=== PATIENT | male | born 1945 | race Native Hawaiian/Other Pacific Islander ===

== ENCOUNTER 2018-12-14 13:51 | Emergency (ER) | payer MEDICARE, BC ==
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
[2018-12-14 14:32] LABS: Basophils # (A) 0.1 k/uL (0-0.2); Basophils % (A) 1 %; Eosinophils # (A) 0.2 k/uL (0-0.7); Eosinophils % (A) 4 %; HCT 46.3 % (39.0-53.0); HGB 15.8 gm/dL (13.0-17.5); Lymphocytes # (A) 1.7 k/uL (1.0-4.8); Lymphocytes % (A) 27 %; MCH 32.2 pg (25.0-35.0); MCHC 34.1 g/dL (31.0-37.0); MCV 94.4 fL (80.0-100.0); Mean Platelet Volume 6.3; Monocytes # (A) 0.3 k/uL (0-1.0); Monocytes % (A) 5 %; Neutrophils % (A) 62 %; Platelet Count 266 k/uL (150-450); RBC 4.91 m/uL (4.30-5.90); WBC 6.4 k/uL (3.8-10.6)
[2018-12-14 14:37] LABS: ALT 48 U/L (21-72); AST 28 U/L (17-59); Albumin 4.7 g/dL (3.5-5.0); Alkaline Phosphatase 87 U/L (38-126); Anion Gap 12 mmol/L; Blood Urea Nitrogen 17 mg/dL (9-20); Calcium 9.9 mg/dL (8.4-10.2); Carbon Dioxide 23 mmol/L (22-30); Chloride 105 mmol/L (98-107); Glucose 145 mg/dL (74-99); Magnesium 1.9 mg/dL (1.6-2.3); Sodium 140 mmol/L (137-145); Total Bilirubin 0.6 mg/dL (0.2-1.3); Total Protein 7.7 g/dL (6.3-8.2)
[2018-12-14 14:41] LABS: INR 0.9 (<1.2); Partial Thromboplastin Time 27.1 sec (22.0-30.0); Prothrombin Time 10.1 sec (9.0-12.0)
--- NOTE | 2018-12-14 14:51 | XR ---
EXAMINATION TYPE: XR chest 2V DATE OF EXAM: 12/14/2018 COMPARISON: NONE HISTORY: Difficulty breathing and chest pain TECHNIQUE: Frontal and lateral views of the chest are obtained. FINDINGS: There is no focal air space opacity, pleural effusion, or pneumothorax seen. The cardiac silhouette size is within normal limits. Prominent lung volume may be indicative of underlying COPD. There are overlying cardiac leads. There is flattening the hemidiaphragms. Flowing anterior osteophy chan within the thoracic spine may be indicative of underlying diffuse idiopathic skeletal hyperostosi s. The osseous structures are intact. IMPRESSION: No acute cardiopulmonary process.
--- NOTE | 2018-12-14 16:00 | CT ---
EXAMINATION TYPE: CT brain wo con DATE OF EXAM: 12/14/2018 HISTORY: Episode of dizziness. Headache. CT DLP: 1150.4 mGycm. Automated Exposure Control for Dose Reduction was Utilized. TECHNIQUE: CT scan of the head is performed without contrast. COMPARISON: CT brain June 19, 2011 FINDINGS: There is no acute intracranial hemorrhage or midlin e shift identified. There is diffuse ventricular and sulcal prominence consistent with diffuse age-re lated cerebral atrophy. There is low-attenuation in the periventricular white matter consistent with chronic small vessel ischemic change. There is patchy fluid in the dependent right maxillary sinus w ith air-fluid level in the left maxillary sinus. There is patchy fluid in the ethmoid sinuses bilater ally. There is mild mucosal thickening in the anterior sphenoid and inferior bilateral frontal sinuse s. IMPRESSION: No acute intracranial hemorrhage or midline shift. There is mild to moderate diffuse ag e-related cerebral atrophy and chronic small vessel ischemic change identified with progression from 2011 study especially in the latter. Acute on chronic paranasal sinus disease is appreciated.
[2018-12-14 16:40] VITALS: BP 146/83; PULSE 65; RESP 18; TEMP 98.5
== END 2018-12-14 16:48 | disposition home or self-care (01) ==
LOC: EC 13:51
DX: R07.9 Chest pain, unspecified (principal); R51 Headache; R06.02 Shortness of breath; R06.00 Dyspnea, unspecified; E11.9 Type 2 diabetes mellitus without complications; I10 Essential (primary) hypertension; Z79.84 Long term (current) use of oral hypoglycemic drugs; Z79.899 Other long term (current) drug therapy; Z88.0 Allergy status to penicillin; Z87.891 Personal history of nicotine dependence
CPT/HCPCS: 36415; 70450; 71046; 80053; 83735; 83880; 84484; 85025; 85610; 85730; 93005; 99285

== ENCOUNTER 2019-01-12 20:53 | Inpatient (IN) | payer MEDICARE, BC ==
[2019-01-12] MEDS ORDERED: PANTOPRAZOLE 40 MG/10 ML VIAL IVP STA (21:24)
--- NOTE | 2019-01-12 21:24 | ED ---
GI Bleed HPI - General Chief complaint: GI Bleed Stated complaint: Rectal bleeding Source: patient Mode of arrival: ambulatory Limitations: no limitations - History of Present Illness Initial comments: Patient states he was in his usual state of health until between 1-2 hours ago when he states he went to have bowel movement and noticed that there was some blood with the bowel movement. He describes seeing both some dark clot-like material as well as a little bit of red blood. Patient states that he had a second bowel movement with the same. He denies any other symptoms, including no abdominal pain or cramping. No perianal pain. He denies any symptoms of anemia, including no chest pain, dyspnea, diaphoresis, palpitations, lightheadedness or syncope. No previous history of GI bleeding. denies use of blood thinning medications. MD complaint: melena, gross hematochezia Onset/Timin -: hour(s) Radiation: none Severity scale (1-10): 0 Quality: painless Improves with: none Worsens with: none Associated Symptoms: denies other symptoms Treatments Prior to Arrival: none - Related Data Home Medications Medication Instructions Recorded Confirmed amLODIPine BESYLATE 10 mg PO DAILY 12/14/18 01/12/19 metFORMIN HCL 1,000 mg PO DAILY 12/14/18 01/12/19 Calcium Carbonate [Calcium] 600 mg PO DAILY 01/12/19 01/12/19 Fluticasone Nasal [place] [Flonase 1 spray EA NOSTRIL DAILY PRN 01/12/19 01/12/19 Nasal [place]] Allergies Allergy/AdvReac Type Severity Reaction Status Date / Time Penicillins Allergy Rash/Hives Verified 01/12/19 21:59 Review of Systems ROS Statement: Those systems with pertinent positive or pertinent negative responses have been documented in the HPI. ROS Other: All systems not noted in ROS Statement are negative. Constitutional: Denies: fever, chills, weakness Respiratory: Denies: cough, dyspnea Cardiovascular: Denies: chest pain, palpitations, edema, syncope Gastrointestinal: Reports: hematochezia. Denies: abdominal pain, nausea, vomiti ng, diarrhea Genitourinary: Denies: dysuria, hematuria Musculoskeletal: Denies: back pain Skin: Denies: rash Neurological: Denies: headache, weakness, numbness Psychiatric: Denies: anxiety Hematological/Lymphatic: Denies: easy bleeding Past Medical History Past Medical History: Diabetes Mellitus, Hyperlipidemia, Hypertension History of Any Multi-Drug Resistant Organisms: None Reported Additional Past Surgical History / Comment(s): ear surgery, Past Psychological History: No Psychological Hx Reported Smoking Status: Former smoker Past Alcohol Use History: Rare Past Drug Use History: None Reported General Exam Limitations: no limitations General appearance: alert Head exam: Present: atraumatic, normocephalic Eye exam: Present: normal appearance. Absent: scleral icterus, conjunctival injection ENT exam: Present: normal oropharynx Neck exam: Present: normal inspection Respiratory exam: Present: normal lung sounds bilaterally. Absent: respiratory distress, wheezes, rales, rhonchi, stridor Cardiovascular Exam: Present: regular rate, normal rhythm, normal heart sounds. Absent: systolic murmur, diastolic murmur, rubs, gallop GI/Abdominal exam: Present: soft. Absent: distended, tenderness, guarding, rebound, rigid, mass Extremities exam: Present: normal inspection, normal capillary refill. Absent: pedal edema, calf tenderness Back exam: Present: normal inspection. Absent: CVA tenderness (R), CVA tenderness (L) Neurological exam: Present: alert Skin exam: Present: warm, dry, intact, normal color. Absent: rash Course Vital Signs 01/12/19 01/12/19 20:56 22:16 Temperature 98.8 F Pulse Rate 90 88 Respiratory 18 15 Rate Blood Pressure 155/77 161/85 O2 Sat by Pulse 97 95 Oximetry Medical Decision Making - Lab Data Result diagrams: 01/12/19 21:10 01/12/19 21:10 Lab Results 01/12/19 01/12/19 01/12/19 Range/Units 21:10 21:10 21:10 WBC 7.8 (3.8-10.6) k/uL RBC 4.88 (4.30-5.90) m/uL Hgb 15.5 (13.0-17.5) gm/dL Hct 44.8 (39.0-53.0) % MCV 91.9 (80.0-100.0) fL MCH 31.8 (25.0-35.0) pg MCHC 34.6 (31.0-37.0) g/dL RDW 14.2 (11.5-15.5) % Plt Count 269 (150-450) k/uL Neutrophils % 55 % Lymphocytes % 32 % Monocytes % 6 % Eosinophils % 5 % Basophils % 1 % Neutrophils # 4.3 (1.3-7.7) k/uL Lymphocytes # 2.5 (1.0-4.8) k/uL Monocytes # 0.4 (0-1.0) k/uL Eosinophils # 0.4 (0-0.7) k/uL Basophils # 0.1 (0-0.2) k/uL PT 9.8 (9.0-12.0) sec INR 0.9 (<1.2) APTT 25.9 (22.0-30.0) sec Sodium 140 (137-145) mmol/L Potassium 4.2 (3.5-5.1) mmol/L Chloride 107 (98-107) mmol/L Carbon Dioxide 22 (22-30) mmol/L Anion Gap 11 mmol/L BUN 17 (9-20) mg/dL Creatinine 0.68 (0.66-1.25) mg/dL Est GFR (CKD-EPI)AfAm >90 (>60 ml/min/1.73 sqM) Est GFR (CKD-EPI)NonAf >90 (>60 ml/min/1.73 sqM) Glucose 203 H (74-99) mg/dL Calcium 9.3 (8.4-10.2) mg/dL Total Bilirubin 0.4 (0.2-1.3) mg/dL AST 20 (17-59) U/L ALT 34 (21-72) U/L Alkaline Phosphatase 125 (38-126) U/L Troponin I (0.000-0.034) ng/mL Total Protein 7.3 (6.3-8.2) g/dL Albumin 4.3 (3.5-5.0) g/dL Blood Type Blood Type Recheck Antibody Screen Spec Expiration Date 01/12/19 01/12/19 Range/Units 21:10 21:10 WBC (3.8-10.6) k/uL RBC (4.30-5.90) m/uL Hgb (13.0-17.5) gm/dL Hct (39.0-53.0) % MCV (80.0-100.0) fL MCH (25.0-35.0) pg MCHC (31.0-37.0) g/dL RDW (11.5-15.5) % Plt Count (150-450) k/uL Neutrophils % % Lymphocytes % % Monocytes % % Eosinophils % % Basophils % % Neutrophils # (1.3-7.7) k/uL Lymphocytes # (1.0-4.8) k/uL Monocytes # (0-1.0) k/uL Eosinophils # (0-0.7) k/uL Basophils # (0-0.2) k/uL PT (9.0-12.0) sec INR (<1.2) APTT (22.0-30.0) sec Sodium (137-145) mmol/L Potassium (3.5-5.1) mmol/L Chloride (98-107) mmol/L Carbon Dioxide (22-30) mmol/L Anion Gap mmol/L BUN (9-20) mg/dL Creatinine (0.66-1.25) mg/dL Est GFR (CKD-EPI)AfAm (>60 ml/min/1.73 sqM) Est GFR (CKD-EPI)NonAf (>60 ml/min/1.73 sqM) Glucose (74-99) mg/dL Calcium (8.4-10.2) mg/dL Total Bilirubin (0.2-1.3) mg/dL AST (17-59) U/L ALT (21-72) U/L Alkaline Phosphatase (38-126) U/L Troponin I <0.012 (0.000-0.034) ng/mL Total Protein (6.3-8.2) g/dL Albumin (3.5-5.0) g/dL Blood Type O Positive Blood Type Recheck CABO Indicated Antibody Screen NEGATIVE Spec Expiration Date 01/15/2019 - 2309 Disposition Clinical Impression: Lower gastrointestinal hemorrhage Disposition: ADMITTED IP TO THIS [facility] Condition: Serious Instructions (If sedation given, give patient instructions): Gastrointestinal Bleeding (ED) Referrals: Jay Parekh MD [Primary Care Provider] - 1-2 days
[2019-01-12 21:51] LABS: Basophils # (A) 0.1 k/uL (0-0.2); Basophils % (A) 1 %; Eosinophils # (A) 0.4 k/uL (0-0.7); Eosinophils % (A) 5 %; HCT 44.8 % (39.0-53.0); HGB 15.5 gm/dL (13.0-17.5); Lymphocytes # (A) 2.5 k/uL (1.0-4.8); Lymphocytes % (A) 32 %; MCH 31.8 pg (25.0-35.0); MCHC 34.6 g/dL (31.0-37.0); MCV 91.9 fL (80.0-100.0); Monocytes # (A) 0.4 k/uL (0-1.0); Monocytes % (A) 6 %; Neutrophils # (A) 4.3 k/uL (1.3-7.7); Neutrophils % (A) 55 %; Platelet Count 269 k/uL (150-450); RBC 4.88 m/uL (4.30-5.90); RDW 14.2 % (11.5-15.5); WBC 7.8 k/uL (3.8-10.6)
[2019-01-12 21:54] LABS: INR 0.9 (<1.2); Partial Thromboplastin Time 25.9 sec (22.0-30.0); Prothrombin Time 9.8 sec (9.0-12.0)
[2019-01-12 21:55] LABS: ALT 34 U/L (21-72); AST 20 U/L (17-59); Albumin 4.3 g/dL (3.5-5.0); Alkaline Phosphatase 125 U/L (38-126); Anion Gap 11 mmol/L; Blood Urea Nitrogen 17 mg/dL (9-20); Calcium 9.3 mg/dL (8.4-10.2); Carbon Dioxide 22 mmol/L (22-30); Chloride 107 mmol/L (98-107); Glucose 203 mg/dL (74-99); Potassium 4.2 mmol/L (3.5-5.1); Sodium 140 mmol/L (137-145); Total Bilirubin 0.4 mg/dL (0.2-1.3); Total Protein 7.3 g/dL (6.3-8.2)
[2019-01-12] MEDS ORDERED: NALOXONE 0.4 MG/ML 1 ML VIAL IV PRN (23:14)
[2019-01-12] MEDS: SODIUM CHLORIDE 0.9% 1,000 ML IV SCH (23:59)
[2019-01-13 01:22] VITALS: BMI 28.4
--- NOTE | 2019-01-13 02:49 | P.HPIM ---
History of Present Illness H&P Date: 01/12/19 Chief Complaint: GI bleeding 73-year-old male with history of diabetes, hypertension, Patient presented the hospital due to sudden onset GI bleeding. He reports at 9 PM he started noticing bloody bowel movement described as dark maroon, and bright blood on the tissue upon wiping . He denies any associated pain in his abdomen. He reports taking full dose aspirin up to 4 times a day for bilateral leg pain due to varicose veins he also reports taking 800 mg Motrin pills for same purpose over the past few days. He denies any epigastric pain denies any dizziness lightheadedness blacking out shortness of breath chest pain. Denies any palpitations sweating. In the ED he was found to have hemoglobin of 15.5 could be too early and follow- up hemoglobins expected to be dropping Patient had over 5 episodes of GI bleeding and upon my interview on the floor had one episode of bleeding. Patient reports history of colonoscopy done over 15 years ago where he had 3 polyps. Patient denies any history of GI bleeding in the past, patient denies any history of diverticular disease or stomach ulcers. Patient does report chronic history of constipation Review of Systems Pertinent positives as noted in HPI. All other systems were reviewed and are negative Past Medical History Past Medical History: Diabetes Mellitus, Hyperlipidemia, Hypertension History of Any Multi-Drug Resistant Organisms: None Reported Additional Past Surgical History / Comment(s): ear surgery, Past Psychological History: No Psychological Hx Reported Smoking Status: Former smoker Past Alcohol Use History: Rare Past Drug Use History: None Reported - Past Family History Mother Additional Family Medical History / Comment(s): Aortic Aneursym Father Family Medical History: No Reported History Medications and Allergies Home Medications Medication Instructions Recorded Confirmed Type amLODIPine BESYLATE 10 mg PO DAILY 12/14/18 01/12/19 History metFORMIN HCL 1,000 mg PO DAILY 12/14/18 01/12/19 History Calcium Carbonate [Calcium] 600 mg PO DAILY 01/12/19 01/12/19 History Fluticasone Nasal [place] [Flonase 1 spray EA NOSTRIL DAILY PRN 01/12/19 01/12/19 History Nasal [place]] Allergies Allergy/AdvReac Type Severity Reaction Status Date / Time Penicillins Allergy Rash/Hives Verified 01/12/19 21:59 Physical Exam Vitals: Vital Signs Temp Pulse Resp BP Pulse Ox 01/12/19 22:16 88 15 161/85 95 01/12/19 20:56 98.8 F 90 18 155/77 97 Intake and Output 01/12/19 01/12/19 01/13/19 14:59 22:59 06:59 Output Total 800 Balance -800 Output: Stool 800 Other: # Bowel Movements 3 Weight 90.718 kg Constitutional: No acute distress, conversant, pleasant Eyes: Anicteric sclerae, moist conjunctiva, no lid-lag Pupils equal round reactive to light ENMT: NC/AT Oropharynx clear, no erythema, exudates Neck: Supple, FROM, no masses, or JVD No carotid bruits No thyromegaly Lungs: Clear to auscultation Clear to percussion Normal respiratory effort, no accessory muscle use Cardiovascular: Heart regular in rate and rhythm, No murmurs, gallops, or rubs No peripheral edema Abdominal: Soft Nontender, no guarding, rebound or rigidity Abdomen moving with respiration Normoactive bowel sounds No hepatomegaly, No splenomegaly No palpable mass No abdominal wall hernia noted Skin: Normal temperature, tone, texture, turgor No induration No subcutaneous nodules No rash, lesions No ulcers evidence of bilateral varicose veins , with skin discoloration ,chronic Extremities: No digital cyanosis No clubbing Pedal pulses intact and symmetrical Radial pulses intact and symmetrical No calf tenderness Psychiatric: Alert and oriented to person, place and time Appropriate affect fair judgment Neuro Muscles Strength 5/5 in all 4 extremities Sensation to light touch grossly present throughout Cranial nerves II-XII grossly intact No focal sensory deficits Lymphatics: no palpable cervical or supraclavicular , or inguinal lymph nodes Results CBC & Chem 7: 01/12/19 21:10 01/12/19 21:10 Labs: Abnormal Lab Results - Last 24 Hours (Table) 01/12/19 Range/Units 21:10 Glucose 203 H (74-99) mg/dL Assessment and Plan Assessment: 73-year-old male with history of hypertension diabetes mellitus Patient admitted as an inpatient with anticipated length of stay more than 48 hours due to bleeding per rectum suspected upper (patient reports maroon blood, taking aspirin and Motrin recently for pain ) versus lower GI bleeding (nurse reporting that rectal bleeding is getting brighter ). Plan: Bleeding per rectum, painless suggestive of diverticular bleeidng , however patient reported history of taking full dose aspirin for pain in his legs (QID), and reports taking to 800 mg Motrin pills, upper GI bleeding needs to be ruled out. Patient hemoglobin currently stable at 15.5, monitor hemoglobin every ticks hours PPI twice a day IV GI consult Close monitoring of vital signs Fall precautions Nothing by mouth IV fluid hydration Tranfuse if symptomatic or significant drop in Hgb Chronic conditions Hypertension Diabetes mellitus Obesity DVT prophylaxis mechanical due to GI bleeding Transfer the patient stepdown unit. due to frequent GI bleeidng Surrogate decision-maker: *Patient CODE STATUS full code Discussed with: Patient, ER, RN Anticipated discharge: 48-[address]: Home A total of 60 minutes was spent on the care of this complex patient more than 50% of the time was spent in counseling and care coordination.
[2019-01-13 03:33] LABS: Basophils % (A) 1 %; Eosinophils # (A) 0.1 k/uL (0-0.7); Eosinophils % (A) 3 %; HCT 40.3 % (39.0-53.0); HGB 13.4 gm/dL (13.0-17.5); Lymphocytes # (A) 1.4 k/uL (1.0-4.8); Lymphocytes % (A) 25 %; MCH 31.4 pg (25.0-35.0); MCHC 33.2 g/dL (31.0-37.0); MCV 94.5 fL (80.0-100.0); Mean Platelet Volume 6.6; Monocytes # (A) 0.3 k/uL (0-1.0); Monocytes % (A) 5 %; Neutrophils # (A) 3.6 k/uL (1.3-7.7); Neutrophils % (A) 65 %; Platelet Count 231 k/uL (150-450); RBC 4.27 m/uL (4.30-5.90); RDW 12.9 % (11.5-15.5); WBC 5.5 k/uL (3.8-10.6)
[2019-01-13 04:08] LABS: Glucose,Whole Blood 196 mg/dL (75-99)
[2019-01-13] MEDS ORDERED: ALPRAZolam 0.5 MG TAB PO STA (04:09)
[2019-01-13] MEDS: INSULIN ASPART (NovoLOG) 100 UNIT/ML VIAL SQ SCH ×4 (07:16→21:21)
[2019-01-13 07:17] LABS: Glucose,Whole Blood 204 mg/dL (75-99)
[2019-01-13] MEDS ORDERED: CALCIUM CARBONATE 500 MG CHEWABLE PO SCH (09:00)
[2019-01-13] MEDS ORDERED: metFORMIN 500 MG TAB PO SCH (09:00)
[2019-01-13] MEDS ORDERED: PANTOPRAZOLE 40 MG/10 ML VIAL IV SCH (09:00)
[2019-01-13 09:30] LABS: Basophils % (A) 1 %; Eosinophils # (A) 0.2 k/uL (0-0.7); Eosinophils % (A) 3 %; HCT 37.4 % (39.0-53.0); HGB 12.6 gm/dL (13.0-17.5); Lymphocytes # (A) 1.6 k/uL (1.0-4.8); Lymphocytes % (A) 28 %; MCH 31.7 pg (25.0-35.0); MCHC 33.7 g/dL (31.0-37.0); MCV 94.2 fL (80.0-100.0); Mean Platelet Volume 7.1; Monocytes # (A) 0.3 k/uL (0-1.0); Monocytes % (A) 6 %; Neutrophils # (A) 3.6 k/uL (1.3-7.7); Neutrophils % (A) 61 %; Platelet Count 237 k/uL (150-450); RBC 3.97 m/uL (4.30-5.90); RDW 13.8 % (11.5-15.5); WBC 5.9 k/uL (3.8-10.6)
[2019-01-13 09:39] LABS: Anion Gap 6 mmol/L; Blood Urea Nitrogen 15 mg/dL (9-20); Calcium 8.4 mg/dL (8.4-10.2); Carbon Dioxide 28 mmol/L (22-30); Chloride 108 mmol/L (98-107); Glucose 192 mg/dL (74-99); Magnesium 1.9 mg/dL (1.6-2.3); Potassium 4.2 mmol/L (3.5-5.1); Sodium 142 mmol/L (137-145)
[2019-01-13] MEDS: PANTOPRAZOLE 40 MG/10 ML VIAL IV SCH ×2 (10:25→21:22)
--- NOTE | 2019-01-13 10:25 | P.PN ---
Subjective Progress Note Date: 01/13/19 Principal diagnosis: GI bleed Patient was seen and examined. No acute events overnight. Patient reports 8 bloody maroon colored bowel movements overnight. He denies any dizziness, chest pain, shortness of breath, palpitations. No nausea or vomiting. Objective - Vital Signs Vital signs: Vital Signs Temp 97.7 F 01/13/19 04:27 Pulse 74 01/13/19 04:27 Resp 14 01/13/19 04:27 BP 160/82 01/13/19 04:27 Pulse Ox 98 01/13/19 04:27 Intake & Output 01/12/19 01/13/19 01/13/19 18:59 06:59 18:59 Intake Total 375 375 Output Total 1750 650 Balance -1375 -275 Weight 91.3 kg Intake: IV 375 375 Sodium Chloride 0.9% 1, 375 375 000 ml @ 125 mls/hr IV . Q8H [facility] Rx#:[id number] Output: Urine 250 Stool 1750 400 Other: Voiding Method Toilet Bedside Commode # Voids 1 1 # Bowel Movements 1 - Exam General: [non toxic], [no distress], [appears at stated age] Derm: [warm], [dry] Head: [atraumatic], [normocephalic], [symmetric] Eyes: [EOMI], [no lid lag], [anicteric sclera] Mouth: [no lip lesion], [mucus membranes moist] Cardiovascular: [S1S2 reg], [no murmur], [positive posterior tibial pulse bilateral], Lungs: [CTA bilateral], [no rhonchi, no rales] , [no accessory muscle use] Abdominal: [soft], [ nontender to palpation], [abdominal wall hernia], [no appreciable organomegaly] Ext: [no gross muscle atrophy], [no edema], [no contractures] Neuro: [ CN II-XI grossly intact], [no focal neuro deficits] Psych: [Alert], [oriented], [appropriate affect] - Labs CBC & Chem 7: 01/13/19 08:59 01/13/19 08:59 Labs: Abnormal Lab Results - Last 24 Hours (Table) 01/12/19 01/13/19 01/13/19 Range/Units 21:10 03:12 03:43 RBC 4.27 L (4.30-5.90) m/uL Hgb (13.0-17.5) gm/dL Hct (39.0-53.0) % Chloride (98-107) mmol/L Glucose 203 H (74-99) mg/dL POC Glucose (mg/dL) 196 H (75-99) mg/dL 01/13/19 01/13/19 01/13/19 Range/Units 07:14 08:59 08:59 RBC 3.97 L (4.30-5.90) m/uL Hgb 12.6 L (13.0-17.5) gm/dL Hct 37.4 L (39.0-53.0) % Chloride 108 H (98-107) mmol/L Glucose 192 H (74-99) mg/dL POC Glucose (mg/dL) 204 H (75-99) mg/dL Assessment and Plan Assessment: Assessment and Plan 1. GI bleed 2. Hypertension 3. Diabetes mellitus 4. Restless leg syndrome 5. Obesity 1. Likely diverticular bleed but UGIB needs to be ruled out due to h/o Motrin and ASA consumption. Hg maintaining from 13.4 to 12.6. Plans: Continue Protonix IV. Continue IVF. GI consulted, plans for upper and lower endoscopy tomorrow. Telemetry monitoring. CLD and NPO after midnight, Golytely prep today. Follow CBC Q6H. Hold ASA and Motrin. Follow GI recommendations. 2. BP. Plans: Continue Amlodipine. Monitor vitals, adjust medications as necessary. 3. POC glucose. Plans: ISS. Hypoglycemic precautions. Regular accuchecks. 4. Plans: DC ASA and start Ropinirole. 5. BMP 32.5. Plans: Structured weight loss program. Patient admitted for GI bleed. Plans for scope tomorrow. Follow GI recommendations. Likely DC in 1-2 days.
[2019-01-13] MEDS: SODIUM CHLORIDE 0.9% 1,000 ML IV SCH ×2 (10:26→18:00)
[2019-01-13 12:01] LABS: Glucose,Whole Blood 160 mg/dL (75-99)
--- NOTE | 2019-01-13 12:05 | CONS ---
CONSULTATION DATE OF SERVICE: 01/13/2019. REASON FOR CONSULTATION: Acute GI bleed. HISTORY OF PRESENT ILLNESS: The patient is a 73-year-old pleasant white male with history of diabetes mellitus and hypertension, admitted to the hospital with acute onset of bright red blood per rectum that started at 10:00 pm yesterday. He had several episodes of bleeding, at least 7 or 8 episodes. Came to the emergency room and subsequently admitted to the intensive care unit. He has been having significant amount of blood with clots through the night. The last bowel movement was about an hour ago. He denies any abdominal pain. Reports no nausea, vomiting. She has been taking aspirin for bilateral leg pain and occasional Motrin also. No prior history of peptic ulcer disease. Presently denies any abdominal pain. No nausea or vomiting. Last colonoscopy by Dr. Perera was about 15 years ago and according to the patient was within normal limits. When he came to the emergency room hemoglobin was 15.5 g/dL. This morning it is 14.5 g/dL. He never had these symptoms in the past. PAST MEDICAL HISTORY: Diabetes mellitus, hypertension, hyperlipidemia. PAST SURGICAL HISTORY: Ear surgery. MEDICATIONS: At home, amlodipine, metformin, calcium carbonate, Flonase. ALLERGIES: PENICILLIN. SOCIAL HISTORY: No smoking. No alcohol use. FAMILY HISTORY: Unremarkable, mother had aortic aneurysm. Father unremarkable. REVIEW OF SYSTEMS: CARDIOPULMONARY: No chest pain or shortness of breath. GENITOURINARY: No dysuria or hematuria. MUSCULOSKELETAL: Unremarkable. SKIN: Unremarkable. ENDOCRINE: Unremarkable. PSYCHIATRY: Unremarkable. NEUROLOGY: Unremarkable. ENT: Vision unremarkable. CONSTITUTIONAL: No recent weight loss. No fever, chills, night sweats. PHYSICAL EXAMINATION: Blood pressure 151/73, pulse rate 80, temperature 98.3. HEENT examination unremarkable. Conjunctivae pink. Sclerae anicteric. Oral cavity no lesions. Neck, no JVD or lymph node enlargement. Chest clear to auscultation. Heart, regular rate and rhythm. Abdomen is soft, bowel sounds are positive. No organomegaly. Extremities no pedal edema. Skin no rashes. Neurologic, alert and oriented x3. No focal deficits. LABS: Done at the time of admission to the hospital, WBC 7.8, hemoglobin 15.5, and normal platelets. PT/INR is normal. Today hemoglobin is 13.4 g/dL. IMPRESSION: Acute gastrointestinal bleed, possibly diverticular in etiology; cannot rule out upper GI source of bleeding, though unlikely. The patient had several bowel movements which initially started as bright red and now they are maroon-colored with clots. Some drop in hemoglobin noted. He is hemodynamically stable. Last colonoscopy was 15 years ago. No prior history of peptic ulcer disease. RECOMMENDATIONS: 1. Clear liquid diet. 2. We will plan on EGD and colonoscopy tomorrow. Discussed with the patient benefits and complications of the procedure and he is agreeable to it. 3. CBC every 6 hours. 4. Continue Protonix. We will follow the patient closely during his hospital stay. Thank you for this consultation. JEROD / LASHELL: [id number] /
[2019-01-13] MEDS: amLODIPine 10 MG TAB PO SCH (13:30)
[2019-01-13 15:55] LABS: Basophils % (A) 1 %; Eosinophils # (A) 0.3 k/uL (0-0.7); Eosinophils % (A) 4 %; HCT 34.8 % (39.0-53.0); HGB 11.8 gm/dL (13.0-17.5); Lymphocytes # (A) 1.8 k/uL (1.0-4.8); Lymphocytes % (A) 27 %; MCH 31.3 pg (25.0-35.0); MCHC 34.1 g/dL (31.0-37.0); Monocytes # (A) 0.4 k/uL (0-1.0); Monocytes % (A) 6 %; Neutrophils # (A) 4.1 k/uL (1.3-7.7); Neutrophils % (A) 61 %; Platelet Count 260 k/uL (150-450); RBC 3.78 m/uL (4.30-5.90); RDW 13.8 % (11.5-15.5); WBC 6.8 k/uL (3.8-10.6)
[2019-01-13] MEDS: ALPRAZolam 0.5 MG TAB PO PRN (16:24)
[2019-01-13 16:51] LABS: Glucose,Whole Blood 198 mg/dL (75-99)
[2019-01-13] MEDS ORDERED: PEG 3350-NA SULF,BICARB,CL/KCL 4,000 ML BOTTLE PO ONE (17:00)
[2019-01-13 20:58] LABS: Glucose,Whole Blood 179 mg/dL (75-99)
[2019-01-13 21:16] LABS: Basophils % (A) 1 %; Eosinophils # (A) 0.1 k/uL (0-0.7); Eosinophils % (A) 3 %; HCT 31.1 % (39.0-53.0); HGB 10.1 gm/dL (13.0-17.5); Lymphocytes # (A) 1.5 k/uL (1.0-4.8); Lymphocytes % (A) 26 %; MCH 30.9 pg (25.0-35.0); MCHC 32.5 g/dL (31.0-37.0); Mean Platelet Volume 7.3; Monocytes # (A) 0.3 k/uL (0-1.0); Monocytes % (A) 5 %; Neutrophils # (A) 3.6 k/uL (1.3-7.7); Neutrophils % (A) 64 %; Platelet Count 219 k/uL (150-450); RBC 3.28 m/uL (4.30-5.90); RDW 13.2 % (11.5-15.5); WBC 5.6 k/uL (3.8-10.6)
[2019-01-14] MEDS: ALPRAZolam 0.5 MG TAB PO PRN ×2 (00:38→08:13)
[2019-01-14 03:53] LABS: Basophils % (A) 1 %; Eosinophils # (A) 0.2 k/uL (0-0.7); Eosinophils % (A) 5 %; HCT 27.4 % (39.0-53.0); Lymphocytes # (A) 1.5 k/uL (1.0-4.8); Lymphocytes % (A) 29 %; MCH 31.2 pg (25.0-35.0); MCV 94.6 fL (80.0-100.0); Mean Platelet Volume 6.5; Monocytes # (A) 0.3 k/uL (0-1.0); Monocytes % (A) 6 %; Neutrophils # (A) 2.8 k/uL (1.3-7.7); Neutrophils % (A) 56 %; Platelet Count 189 k/uL (150-450); RBC 2.89 m/uL (4.30-5.90); RDW 13.1 % (11.5-15.5)
[2019-01-14] MEDS: SODIUM CHLORIDE 0.9% 1,000 ML IV SCH ×3 (04:57→16:44)
[2019-01-14 07:16] LABS: Glucose,Whole Blood 159 mg/dL (75-99)
[2019-01-14] MEDS: INSULIN ASPART (NovoLOG) 100 UNIT/ML VIAL SQ SCH ×2 (07:17→13:34)
[2019-01-14] MEDS: amLODIPine 10 MG TAB PO SCH (08:10)
[2019-01-14] MEDS: PANTOPRAZOLE 40 MG/10 ML VIAL IV SCH (08:12)
--- NOTE | 2019-01-14 11:37 | P.PN ---
Subjective Progress Note Date: 01/14/19 Principal diagnosis: GI bleed patient was seen and examined. No acute events overnight. Patient reports no further bowel movements. He denies any chest pain, shortness of breath, palpitations, dizziness. Plans for colonoscopy and EGD today. Objective - Vital Signs Vital signs: Vital Signs Temp 97.9 F 01/14/19 04:00 Pulse 80 01/14/19 08:00 Resp 20 01/14/19 08:00 BP 119/62 01/14/19 08:00 Pulse Ox 94 L 01/14/19 04:00 Intake & Output 01/13/19 01/14/19 01/14/19 18:59 06:59 18:59 Intake Total 1250 1500 Output Total 654 3150 Balance 596 -1650 Weight 94.2 kg Intake: IV 1250 1500 Sodium Chloride 0.9% 1, 1250 1500 000 ml @ 125 mls/hr IV . Q8H ROSALBA Rx#:[id number] Output: Urine 254 1200 Stool 400 1950 Other: Voiding Method Toilet Bedside Commode Bedside Commode Bedside Commode # Voids 2 1 - Exam General: [non toxic], [no distress], [appears at stated age] Derm: [warm], [dry] Head: [atraumatic], [normocephalic], [symmetric] Eyes: [EOMI], [no lid lag], [anicteric sclera] Mouth: [no lip lesion], [mucus membranes moist] Cardiovascular: [S1S2 reg], [no murmur], [positive posterior tibial pulse bilateral], Lungs: [CTA bilateral], [no rhonchi, no rales] , [no accessory muscle use] Abdominal: [soft], [ nontender to palpation], [abdominal wall hernia], [no appreciable organomegaly] Ext: [no gross muscle atrophy], [no edema], [no contractures] Neuro: [ CN II-XI grossly intact], [no focal neuro deficits] Psych: [Alert], [oriented], [appropriate affect] - Labs CBC & Chem 7: 01/14/19 03:28 01/13/19 08:59 Labs: Abnormal Lab Results - Last 24 Hours (Table) 01/13/19 01/13/19 01/13/19 Range/Units 11:57 14:53 16:47 RBC 3.78 L (4.30-5.90) m/uL Hgb 11.8 L (13.0-17.5) gm/dL Hct 34.8 L (39.0-53.0) % POC Glucose (mg/dL) 160 H 198 H (75-99) mg/dL 01/13/19 01/13/19 01/14/19 Range/Units 20:53 20:55 03:28 RBC 3.28 L 2.89 L (4.30-5.90) m/uL Hgb 10.1 L 9.0 L (13.0-17.5) gm/dL Hct 31.1 L 27.4 L (39.0-53.0) % POC Glucose (mg/dL) 179 H (75-99) mg/dL 01/14/19 Range/Units 07:13 RBC (4.30-5.90) m/uL Hgb (13.0-17.5) gm/dL Hct (39.0-53.0) % POC Glucose (mg/dL) 159 H (75-99) mg/dL Assessment and Plan Assessment: Assessment and Plan 1. GI bleed 2. Hypertension 3. Diabetes mellitus 4. Restless leg syndrome 5. Obesity 1. Likely diverticular bleed but UGIB needs to be ruled out due to h/o Motrin and ASA consumption. Hg maintaining from 13.4 to 9. Plans: Continue Protonix IV. Continue IVF. GI consulted, plans for upper and lower endoscopy today. Telemetry monitoring. Follow CBC Q6H. Hold ASA and Motrin. Follow GI recommendations. 2. BP 119/62. Plans: Continue Amlodipine. Monitor vitals, adjust medications as necessary. 3. POC glucose 159. Plans: ISS. Hypoglycemic precautions. Regular accuchecks. 4. Plans: DC ASA and start Ropinirole. 5. BMP 33.5. Plans: Structured weight loss program. Patient admitted for GI bleed. Plans for scope today. Follow GI recommendations. Likely DC in 1-2 days.
[2019-01-14 12:10] LABS: Glucose,Whole Blood 138 mg/dL (75-99)
[2019-01-14] MEDS ORDERED: PROPOFOL 10 MG/ML 20 ML VIAL IV ONE (12:19)
[2019-01-14] MEDS ORDERED: IV FLUID CONTINUATION 950 ML IV ONE (12:22)
--- NOTE | 2019-01-14 12:48 | P.PCN ---
Date of Procedure: 01/14/19 Procedure(s) Performed: Brief history: Patient is a pleasant 70-year-old white male, scheduled for an elective upper endoscopy as well as colonoscopy as a part of evaluation of acute GI bleed. Patient presented with multiple episodes of bright rectal blood per rectum and admitted to the intensive care unit. Initial hemoglobin was 15.3 g/dL. It dropped to 9 g/dL. Bleeding has stopped yesterday evening. Procedure performed: Esophagogastroduodenoscopy Colonoscopy Preoperative diagnosis: Acute GI bleed Anesthesia: MAC Procedure: After informed consent was obtained from the patient was brought into the endoscopy unit and IV sedation was administered by anesthesia under continuous monitoring. Initially upper endoscopy was done. The Olympus GF 160 video endoscope was inserted inserted into the mouth and esophagus intubated without any difficulty and was gradually advanced into the stomach and duodenum and carefully examined. The bulb and second part of the duodenum appeared normal. The scope was then withdrawn into the stomach adequately insufflated with air and upon careful examination the antrum and body, cardia and fundus appeared normal. The scope was then withdrawn into the esophagus. The GE junction was located at 40 cm to the incisors. It appeared regular with no erythema erosions or ulcerations. Rest of the esophagus appeared normal. Patient tolerated the procedure well. At this time the patient continued to remain sedation. Initial digital rectal examination was normal. Olympus CF 160 video colonoscope was then inserted into the rectum and gradually advanced to the cecum without any difficulty. Careful examination was performed as the scope was gradually being withdrawn. The prep was excellent. The cecum, ascending colon, transverse colon, descending colon, sigmoid colon and rectum appeared normal. Diffuse scattered diverticular was monitored throughout the entire colon but no active bleeding seen. Retroflexion was performed in the rectum and no lesions were noted. Patient tolerated the procedure well. Impression: 1. Upper endoscopy revealed no evidence of active upper GI bleed. Normal esophagus stomach and duodenum. 2. Colonoscopy revealed scattered diffuse diverticula cyst but no evidence of active bleeding. Recommendations: Findings of this examination were discussed with the patient as well as his family. It appears that he had a diverticular bleed that has spontaneously resolved. His diet will be advanced as tolerated. He can be discharged home today or tomorrow.
[2019-01-14 13:55] VITALS: BP 138/79
--- NOTE | 2019-01-14 14:53 | P.DS ---
Providers Date of admission: 01/13/19 02:23 Expected date of discharge: 01/14/19 Attending physician: Kailee Walters MD Consults: 01/12/19 23:19 Consult Physician Routine Consulting Provider: Fariba Staples Consult Reason/Comments: GI Bleeding Do you want consulting provider notified?: Yes Primary care physician: [facility] [place] Course: 73-year-old male with history of diabetes, hypertension, Patient presented the hospital due to sudden onset GI bleeding. He reports at 9 PM he started noticing bloody bowel movement described as dark maroon, and bright blood on the tissue upon wiping . He denies any associated pain in his abdomen. He reports taking full dose aspirin up to 4 times a day for bilateral leg pain due to varicose veins he also reports taking 800 mg Motrin pills for same purpose over the past few days. He denies any epigastric pain denies any dizziness lightheadedness blacking out shortness of breath chest pain. Denies any palpitations sweating. In the ED he was found to have hemoglobin of 15.5 could be too early and follow- up hemoglobins expected to be dropping Patient had over 5 episodes of GI bleeding and upon my interview on the floor had one episode of bleeding. Patient reports history of colonoscopy done over 15 years ago where he had 3 polyps. Patient denies any history of GI bleeding in the past, patient denies any history of diverticular disease or stomach ulcers. Patient does report chronic history of constipation. His GI bleed was thought to be diverticular but upper GI bleed you to be ruled out due to history of aspirin and NSAID use. Patient underwent colonoscopy and EGD which was unrevealing for source of bleed. His hemoglobin trended from 15.5 on admission to 9 on discharge. 1. GI bleed 2. Hypertension 3. Diabetes mellitus 4. Restless leg syndrome 5. Obesity Procedures: EGD and colonoscopy Patient Condition at Discharge: Stable Plan - Discharge Summary Discharge Rx Participant: Yes New Discharge Prescriptions: Continue metFORMIN HCL 1,000 mg PO DAILY amLODIPine BESYLATE 10 mg PO DAILY Fluticasone Nasal [place] [Flonase Nasal [place]] 1 spray EA NOSTRIL DAILY PRN PRN Reason: Nasal Congestion Calcium Carbonate [Calcium] 600 mg PO DAILY Discharge Medication List amLODIPine BESYLATE 10 mg PO DAILY 12/14/18 [History] metFORMIN HCL 1,000 mg PO DAILY 12/14/18 [History] Calcium Carbonate [Calcium] 600 mg PO DAILY 01/12/19 [History] Fluticasone Nasal [place] [Flonase Nasal [place]] 1 spray EA NOSTRIL DAILY PRN 01/12/19 [History] Follow up Appointment(s)/Referral(s): Jay Parekh MD [Primary Care Provider] - 1-2 days Fariba Staples MD [STAFF PHYSICIAN] - 1 Week Ambulatory/Diagnostic Orders: Complete Blood Count w/diff [LAB.AMB] Time Frame: 2 Days, Location: None Selected Patient Instructions/Handouts: Gastrointestinal Bleeding (ED) Activity/Diet/Wound Care/Special Instructions: Diet: Heart healthy Follow-up with PCP within 1-2 days of discharge. Follow-up with GI within 1 week of discharge. Obtain CBC within 3 days of discharge. Discharge Disposition: HOME SELF-CARE
[2019-01-14 16:40] VITALS: PULSE 85; RESP 14; TEMP 97.5
== END 2019-01-14 16:51 | disposition home or self-care (01) | DRG 379 ==
LOC: EC 20:53 → 4SSUR 23:22 → OBSVTOIN 01-13 02:23 → 2SICU 01-13 04:19
PROVIDERS: ADMIT Internal Medicine; ATTEND Internal Medicine
PROC: 0DJ08ZZ Inspection of Upper Intestinal Tract, Via Natural or Artificial Opening Endoscopic (ICD-10-PCS; principal; 2019-01-14 07:30)
PROC: 0DJD8ZZ Inspection of Lower Intestinal Tract, Via Natural or Artificial Opening Endoscopic (ICD-10-PCS; 2019-01-14 07:30)
DX: K57.91 Diverticulosis of intestine, part unspecified, without perforation or abscess with bleeding (principal); E11.9 Type 2 diabetes mellitus without complications; E66.9 Obesity, unspecified; Z68.33 Body mass index [BMI] 33.0-33.9, adult; E78.5 Hyperlipidemia, unspecified; G25.81 Restless legs syndrome; I10 Essential (primary) hypertension; I83.813 Varicose veins of bilateral lower extremities with pain; Z79.84 Long term (current) use of oral hypoglycemic drugs; Z82.49 Family history of ischemic heart disease and other diseases of the circulatory system; Z87.891 Personal history of nicotine dependence; K43.9 Ventral hernia without obstruction or gangrene; Z88.0 Allergy status to penicillin; Z86.010 Personal history of colon polyps; K59.09 Other constipation; Z79.1 Long term (current) use of non-steroidal anti-inflammatories (NSAID); Z79.899 Other long term (current) drug therapy
CPT/HCPCS: 36415; 43239; 45378; 80048; 80053; 82272; 83605; 83735; 84484; 85025; 85610; 85730; 86850; 86900; 86901; 96374; 99285

== ENCOUNTER 2019-01-17 16:23 | Emergency (ER) | payer MEDICARE, BC ==
[2019-01-17] MEDS ORDERED: SODIUM CHLORIDE 0.9% 1,000 ML IV STA (17:06)
--- NOTE | 2019-01-17 17:10 | ED ---
General Adult HPI - General Chief complaint: Dizziness Stated complaint: Near-syncope Time Seen by Provider: 01/17/19 16:45 Source: patient, RN notes reviewed Mode of arrival: wheelchair Limitations: no limitations - History of Present Illness Initial comments: Patient is a pleasant 73-year-old male presenting to the emergency department following a near syncopal episode. Episode occurred around 3 or 3:15. Episode lasted 30-60 minutes and has now resolved. Patient did have a similar episode yesterday. Patient states he became sweaty and pale. Patient states he had associated lightheadedness. Patient did have nausea. No confusion or isolated area of weakness. No chest or abdominal pain. Symptoms resolved around arrival to the emergency department. Patient does have history of anxiety and did take a Xanax however does not feel symptoms are similar to his previous anxiety. Patient has been having some lower back discomfort since he had EGD and colonoscopy done on Monday. This has been mostly persistent. Discomfort is only with position changes or not at rest. No leg weakness or incontinence. No confusion or weakness in general. Patient does have a history of similar low back problems previously however not quite as bothersome. - Related Data Home Medications Medication Instructions Recorded Confirmed amLODIPine BESYLATE 10 mg PO DAILY 12/14/18 01/17/19 metFORMIN HCL 1,000 mg PO DAILY 12/14/18 01/17/19 Calcium Carbonate [Calcium] 600 mg PO DAILY 01/12/19 01/17/19 Fluticasone Nasal [place] [Flonase 1 spray EA NOSTRIL DAILY PRN 01/12/19 01/17/19 Nasal [place]] ALPRAZolam [Xanax] 0.25 mg PO HS PRN 01/17/19 01/17/19 traMADol HCL [Ultram] 50 mg PO BID PRN 01/17/19 01/17/19 Allergies Allergy/AdvReac Type Severity Reaction Status Date / Time Penicillins Allergy Rash/Hives Verified 01/17/19 17:05 Review of Systems ROS Statement: Those systems with pertinent positive or pertinent negative responses have been documented in the HPI. ROS Other: All systems not noted in ROS Statement are negative. Constitutional: Denies: fever Eyes: Denies: eye pain ENT: Denies: ear pain Respiratory: Reports: dyspnea (Patient did feel a little bit short of breath during the episode). Denies: cough Cardiovascular: Denies: chest pain, palpitations Endocrine: Denies: fatigue Gastrointestinal: Reports: nausea. Denies: abdominal pain, vomiting Genitourinary: Denies: dysuria Musculoskeletal: Reports: as per HPI Skin: Denies: rash Neurological: Denies: headache, weakness, confusion Past Medical History Past Medical History: Diabetes Mellitus, Hyperlipidemia, Hypertension History of Any Multi-Drug Resistant Organisms: None Reported Additional Past Surgical History / Comment(s): ear surgery, Past Anesthesia/Blood Transfusion Reactions: No Reported Reaction Past Psychological History: No Psychological Hx Reported Smoking Status: Former smoker Past Alcohol Use History: Rare Past Drug Use History: None Reported - Past Family History Mother Additional Family Medical History / Comment(s): Aortic Aneursym Father Family Medical History: No Reported History General Exam Limitations: no limitations General appearance: alert, in no apparent distress Head exam: Present: atraumatic Eye exam: Present: normal appearance, PERRL, EOMI. Absent: nystagmus ENT exam: Present: normal oropharynx Neck exam: Present: normal inspection Respiratory exam: Present: normal lung sounds bilaterally Cardiovascular Exam: Present: regular rate, normal rhythm Expanded Peripheral pulses: 2+: Radial (R), Radial (L), Posterior Tibialis (R), Posterior Tibialis (L), Dorsalis Pedis (R), Dorsalis Pedis (L) GI/Abdominal exam: Present: soft, normal bowel sounds, hernia (Ventral hernia that is easily reducible and nontender). Absent: distended, tenderness, pulsatile mass Extremities exam: Present: normal inspection. Absent: pedal edema, calf tenderness Back exam: Present: normal inspection. Absent: tenderness, paraspinal tenderness, vertebral tenderness Neurological exam: Present: alert, oriented X3, CN II-XII intact. Absent: motor sensory deficit Expanded Neurological exam: Present: protecting the airway Patient oriented to: Present: person, place, time Speech: Present: fluid speech Cranial nerves: EOM's Intact: Normal Sensory exam: Upper Extremity Light Touch: Normal, Lower Extremity Light Touch: Normal Motor strength exam: RUE: 5, LUE: 5, RLE: 5, LLE: 5 Eye Response: (4) open spontaneously Motor Response: (6) obeys commands Verbal Response: (5) oriented Psychiatric exam: Present: normal affect, normal mood Skin exam: Present: normal color Course Vital Signs 06/06/19 16:25 Temperature 98.0 F Pulse Rate 84 Respiratory 18 Rate Blood Pressure 155/80 O2 Sat by Pulse 99 Oximetry EKG Findings - EKG Comments: EKG Findings:: No sinus rhythm 83. OH 174. QRS 90. QT 406. QTc 477. Normal axis. Normal QRS. No acute ST change. Medical Decision Making - Medical Decision Making Patient reevaluated and resting comfortably in bed. Patient remained symptom- free at this point. Patient feels his symptoms resolved around 30 or 40 minutes after taking his Xanax and feels his symptoms were likely related to anxiety. Patient updated on results. Patient also updated on limitations of tests in the emergency department. Patient is offered admission for further evaluation however refuses. Patient states it is not necessary to call admitting provider. Patient is definite that he is sleeping. Patient does them straight medical decision making and does agree to close follow-up with his doctor. - Lab Data Result diagrams: 01/17/19 16:38 01/17/19 16:38 Lab Results 01/17/19 01/17/19 01/17/19 Range/Units 16:38 16:38 16:38 WBC 8.7 (3.8-10.6) k/uL RBC 3.19 L (4.30-5.90) m/uL Hgb 10.4 L (13.0-17.5) gm/dL Hct 29.9 L (39.0-53.0) % MCV 93.6 (80.0-100.0) fL MCH 32.4 (25.0-35.0) pg MCHC 34.6 (31.0-37.0) g/dL RDW 15.9 H (11.5-15.5) % Plt Count 300 (150-450) k/uL Neutrophils % 68 % Lymphocytes % 22 % Monocytes % 5 % Eosinophils % 2 % Basophils % 1 % Neutrophils # 5.9 (1.3-7.7) k/uL Lymphocytes # 1.9 (1.0-4.8) k/uL Monocytes # 0.4 (0-1.0) k/uL Eosinophils # 0.2 (0-0.7) k/uL Basophils # 0.1 (0-0.2) k/uL PT 10.1 (9.0-12.0) sec INR 0.9 (<1.2) APTT 22.9 (22.0-30.0) sec D-Dimer 0.21 (<0.60) mg/L FEU Sodium 138 (137-145) mmol/L Potassium 3.8 (3.5-5.1) mmol/L Chloride 104 (98-107) mmol/L Carbon Dioxide 23 (22-30) mmol/L Anion Gap 11 mmol/L BUN 13 (9-20) mg/dL Creatinine 0.68 (0.66-1.25) mg/dL Est GFR (CKD-EPI)AfAm >90 (>60 ml/min/1.73 sqM) Est GFR (CKD-EPI)NonAf >90 (>60 ml/min/1.73 sqM) Glucose 185 H (74-99) mg/dL Calcium 9.5 (8.4-10.2) mg/dL Magnesium 1.8 (1.6-2.3) mg/dL Total Bilirubin 0.7 (0.2-1.3) mg/dL AST 24 (17-59) U/L ALT 32 (21-72) U/L Alkaline Phosphatase 68 (38-126) U/L Creatine Kinase 56 (55-170) U/L Troponin I (0.000-0.034) ng/mL Total Protein 7.1 (6.3-8.2) g/dL Albumin 4.3 (3.5-5.0) g/dL Urine Color Urine Appearance (Clear) Urine pH (5.0-8.0) Ur Specific [place] (1.001-1.035) Urine Protein (Negative) Urine Glucose (UA) (Negative) Urine Ketones (Negative) Urine Blood (Negative) Urine Nitrite (Negative) Urine Bilirubin (Negative) Urine Urobilinogen (<2.0) mg/dL Ur Leukocyte Esterase (Negative) 01/17/19 01/17/19 Range/Units 16:38 16:38 WBC (3.8-10.6) k/uL RBC (4.30-5.90) m/uL Hgb (13.0-17.5) gm/dL Hct (39.0-53.0) % MCV (80.0-100.0) fL MCH (25.0-35.0) pg MCHC (31.0-37.0) g/dL RDW (11.5-15.5) % Plt Count (150-450) k/uL Neutrophils % % Lymphocytes % % Monocytes % % Eosinophils % % Basophils % % Neutrophils # (1.3-7.7) k/uL Lymphocytes # (1.0-4.8) k/uL Monocytes # (0-1.0) k/uL Eosinophils # (0-0.7) k/uL Basophils # (0-0.2) k/uL PT (9.0-12.0) sec INR (<1.2) APTT (22.0-30.0) sec D-Dimer (<0.60) mg/L FEU Sodium (137-145) mmol/L Potassium (3.5-5.1) mmol/L Chloride (98-107) mmol/L Carbon Dioxide (22-30) mmol/L Anion Gap mmol/L BUN (9-20) mg/dL Creatinine (0.66-1.25) mg/dL Est GFR (CKD-EPI)AfAm (>60 ml/min/1.73 sqM) Est GFR (CKD-EPI)NonAf (>60 ml/min/1.73 sqM) Glucose (74-99) mg/dL Calcium (8.4-10.2) mg/dL Magnesium (1.6-2.3) mg/dL Total Bilirubin (0.2-1.3) mg/dL AST (17-59) U/L ALT (21-72) U/L Alkaline Phosphatase (38-126) U/L Creatine Kinase (55-170) U/L Troponin I <0.012 (0.000-0.034) ng/mL Total Protein (6.3-8.2) g/dL Albumin (3.5-5.0) g/dL Urine Color Light Yellow Urine Appearance Clear (Clear) Urine pH 6.5 (5.0-8.0) Ur Specific [place] 1.015 (1.001-1.035) Urine Protein Trace H (Negative) Urine Glucose (UA) 3+ H (Negative) Urine Ketones 2+ H (Negative) Urine Blood Negative (Negative) Urine Nitrite Negative (Negative) Urine Bilirubin Negative (Negative) Urine Urobilinogen <2.0 (<2.0) mg/dL Ur Leukocyte Esterase Negative (Negative) - Radiology Data Radiology results: report reviewed (Computed tomography scan of brain without contrast reveals no acute process atrophy and chronic small vessel ischemic changes.), image reviewed (Ur spine shows spondylosis. X-ray one view of the abdomen reveals no acute process. Two-view chest x-ray shows no acute process) Disposition Clinical Impression: Near syncope Disposition: HOME SELF-CARE Condition: Stable Instructions (If sedation given, give patient instructions): Near Syncope (ED) Additional Instructions: Please follow-up with primary care physician in the next day or 2 for recheck. Return for passing out, feeling like urinary pass out, chest pain or difficulty breathing, worsening or change in symptoms or any other concerns. He will need further evaluation through primary care physician. Is patient prescribed a controlled substance at d/c from ED?: No Referrals: Jay Parekh MD [Primary Care Provider] - 1-2 days Time of Disposition: 18:49
[2019-01-17 17:33] LABS: Appearance,Urine Clear (Clear); Bilirubin,Urine Negative (Negative); Blood,Urine Negative (Negative); Color,Urine Light Yellow; Glucose,Urine (UA) 3+ (Negative); Leukocyte Esterase,Urine Negative (Negative); Nitrite,Urine Negative (Negative); PH, Urine 6.5 (5.0-8.0); Protein,Urine Trace (Negative); Specific Gravity,Urine 1.015 (1.001-1.035); Urobilinogen,Urine <2.0 mg/dL (<2.0)
[2019-01-17 17:41] LABS: Basophils # (A) 0.1 k/uL (0-0.2); Basophils % (A) 1 %; Eosinophils # (A) 0.2 k/uL (0-0.7); Eosinophils % (A) 2 %; HCT 29.9 % (39.0-53.0); HGB 10.4 gm/dL (13.0-17.5); Lymphocytes # (A) 1.9 k/uL (1.0-4.8); Lymphocytes % (A) 22 %; MCH 32.4 pg (25.0-35.0); MCHC 34.6 g/dL (31.0-37.0); MCV 93.6 fL (80.0-100.0); Monocytes # (A) 0.4 k/uL (0-1.0); Monocytes % (A) 5 %; Neutrophils # (A) 5.9 k/uL (1.3-7.7); Neutrophils % (A) 68 %; Platelet Count 300 k/uL (150-450); RBC 3.19 m/uL (4.30-5.90); RDW 15.9 % (11.5-15.5); WBC 8.7 k/uL (3.8-10.6)
--- NOTE | 2019-01-17 17:45 | CT ---
EXAMINATION TYPE: CT brain wo con DATE OF EXAM: 01/17/2019 COMPARISON: 12/14/2018 HISTORY: Lightheadedness today. CT DLP: 1141.4 mGycm Automated exposure control for dose reduction was used. FINDINGS: There is mild cerebral atrophy. There is no mass effect nor midline shift. There is no sign of intrac ranial hemorrhage. Calvarium is intact. There is some mucosal thickening in the maxillary sinuses. Th ere is mild hypodensity in the white matter around occipital horns of the lateral ventricles. IMPRESSION: CEREBRAL ATROPHY AND CHRONIC SMALL VESSEL ISCHEMIA. MILD MAXILLARY SINUSITIS. NO SIGNIFICANT CHANGE. NO ACUTE INTRACRANIAL ABNORMALITY.
--- NOTE | 2019-01-17 17:46 | XR ---
EXAMINATION TYPE: XR chest 2V DATE OF EXAM: 01/17/2019 COMPARISON: 12/14/2018 HISTORY: Dizziness TECHNIQUE: Frontal and lateral views of the chest are obtained. FINDINGS: Heart and mediastinum are normal. Lungs are clear. Diaphragm is normal. Bony thorax is nor mal. IMPRESSION: Normal chest. No change.
[2019-01-17 17:47] LABS: ALT 32 U/L (21-72); AST 24 U/L (17-59); African American GFR (CKD) >90 (>60 ml/min/1.73 sqM); Albumin 4.3 g/dL (3.5-5.0); Alkaline Phosphatase 68 U/L (38-126); Anion Gap 11 mmol/L; Blood Urea Nitrogen 13 mg/dL (9-20); Calcium 9.5 mg/dL (8.4-10.2); Carbon Dioxide 23 mmol/L (22-30); Chloride 104 mmol/L (98-107); Creatine Kinase 56 U/L (55-170); Glucose 185 mg/dL (74-99); Magnesium 1.8 mg/dL (1.6-2.3); Potassium 3.8 mmol/L (3.5-5.1); Sodium 138 mmol/L (137-145); Total Bilirubin 0.7 mg/dL (0.2-1.3); Total Protein 7.1 g/dL (6.3-8.2)
--- NOTE | 2019-01-17 17:47 | XR ---
EXAMINATION TYPE: XR abdomen 1V DATE OF EXAM: 01/17/2019 COMPARISON: NONE HISTORY: Back pain TECHNIQUE: 2 views upright FINDINGS: There is no sign of intestinal obstruction or pneumoperitoneum. Fecal pattern is normal. Rosalva ng bases are clear. There are no pathologic calcifications over the kidneys. IMPRESSION: Nonacute abdomen.
[2019-01-17 17:48] LABS: D-Dimer 0.21 mg/L FEU (<0.60); INR 0.9 (<1.2); Partial Thromboplastin Time 22.9 sec (22.0-30.0); Prothrombin Time 10.1 sec (9.0-12.0)
--- NOTE | 2019-01-17 17:48 | XR ---
EXAMINATION TYPE: XR lumbar spine 2 or 3V DATE OF EXAM: 01/17/2019 COMPARISON: NONE HISTORY: Back pain TECHNIQUE: 3 views FINDINGS: Lumbar vertebra have normal alignment. Disc spaces are fairly normal. There is spurring ant eriorly throughout the lumbar spine. There is no compression fracture. Sacroiliac joints are normal. Posterior elements are intact. IMPRESSION: Mild multilevel spondylosis. No fracture seen.
[2019-01-17 18:09] LABS: Ketones,Urine 2+ (Negative)
[2019-01-17 19:07] VITALS: BP 123/75; PULSE 79; RESP 17; TEMP 98.6
== END 2019-01-17 19:07 | disposition home or self-care (01) ==
LOC: EC 16:23
DX: R55 Syncope and collapse (principal); G31.9 Degenerative disease of nervous system, unspecified; I67.82 Cerebral ischemia; M47.816 Spondylosis without myelopathy or radiculopathy, lumbar region; K43.9 Ventral hernia without obstruction or gangrene; F41.9 Anxiety disorder, unspecified; E11.9 Type 2 diabetes mellitus without complications; I10 Essential (primary) hypertension; Z87.891 Personal history of nicotine dependence; Z88.0 Allergy status to penicillin; Z79.84 Long term (current) use of oral hypoglycemic drugs; Z79.899 Other long term (current) drug therapy; Z53.29 Procedure and treatment not carried out because of patient's decision for other reasons
CPT/HCPCS: 36415; 70450; 71046; 72100; 74018; 80053; 81003; 82550; 83735; 84484; 85025; 85379; 85610; 85730; 93005; 96360; 96361; 99284

== ENCOUNTER 2021-02-26 17:38 | Emergency (ER) | payer MEDICARE, BC ==
[2021-02-26 18:00] VITALS: BP 187/86; PULSE 82; RESP 18; TEMP 98.2
--- NOTE | 2021-02-26 18:23 | ED ---
ENT HPI - General Chief complaint: ENT Stated complaint: Lt Ear Infection Source: patient, RN notes reviewed Mode of arrival: ambulatory Limitations: no limitations - History of Present Illness Initial comments: 75-year-old pleasant male, presents to the emergency room with complaints of one day of foul-smelling exudate coming from his left ear. He denies any fevers, headaches, dizziness, nausea or vomiting. States that his ear has been itching even after removing his hearing aid. His doctor told him to follow up with Dr. Flores however he cannot get in until May. Patient states that he used a Q-tip today and removed a large amount of foul-smelling exudate but states minimal pain. MD complaint: ear pain -: days(s) (1) Location: L ear Severity: mild Severity scale (1-10): 1 Quality: aching, other (Itching) Consistency: constant Worsens with: none Context- Ear: other (Wearing hearing aids, has been itching, use Q-tip to pull out a large amount of foul-smelling exudate) - Related Data Home Medications Medication Instructions Recorded Confirmed amLODIPine BESYLATE 10 mg PO DAILY 12/14/18 01/17/19 metFORMIN HCL 1,000 mg PO DAILY 12/14/18 01/17/19 Calcium Carbonate [Calcium] 600 mg PO DAILY 01/12/19 01/17/19 Fluticasone Nasal [place] [Flonase 1 spray EA NOSTRIL DAILY PRN 01/12/19 01/17/19 Nasal [place]] ALPRAZolam [Xanax] 0.25 mg PO HS PRN 01/17/19 01/17/19 traMADol HCL [Ultram] 50 mg PO BID PRN 01/17/19 01/17/19 Previous Rx's Medication Instructions Recorded Ofloxacin 0.3% Otic Soln [Floxin 5 drops LEFT EAR BID 10 Days #100 02/26/21 0.3% Otic Soln] ml Allergies Allergy/AdvReac Type Severity Reaction Status Date / Time Penicillins Allergy Rash/Hives Verified 02/26/21 18:00 Review of Systems ROS Statement: Those systems with pertinent positive or pertinent negative responses have been documented in the HPI. ROS Other: All systems not noted in ROS Statement are negative. Past Medical History Past Medical History: Diabetes Mellitus, Hyperlipidemia, Hypertension History of Any Multi-Drug Resistant Organisms: None Reported Additional Past Surgical History / Comment(s): ear surgery, Past Anesthesia/Blood Transfusion Reactions: No Reported Reaction Past Psychological History: No Psychological Hx Reported Smoking Status: Former smoker Past Alcohol Use History: Rare Past Drug Use History: None Reported - Past Family History Mother Additional Family Medical History / Comment(s): Aortic Aneursym Father Family Medical History: No Reported History General Exam Limitations: no limitations General appearance: alert, in no apparent distress Head exam: Present: atraumatic, normocephalic, normal inspection Eye exam: Present: normal appearance, PERRL, EOMI. Absent: scleral icterus, conjunctival injection, periorbital swelling ENT exam: Present: normal oropharynx, mucous membranes moist Expanded TM/Canal exam: Loss of Landmarks: Left TM, Canal Discharge: Left TM Mouth exam: Present: normal external inspection Throat exam: normal inspection Neck exam: Present: normal inspection, full ROM. Absent: tenderness, meningismus, lymphadenopathy, thyromegaly Respiratory exam: Present: normal lung sounds bilaterally. Absent: respiratory distress, wheezes, rales, rhonchi, stridor, chest wall tenderness, accessory muscle use, decreased breath sounds, prolonged expiratory Cardiovascular Exam: Present: regular rate, normal rhythm, normal heart sounds. Absent: systolic murmur, diastolic murmur, rubs, gallop, clicks Extremities exam: Present: normal inspection, full ROM, normal capillary refill. Absent: tenderness, pedal edema, joint swelling, calf tenderness Back exam: Present: full ROM. Absent: tenderness, CVA tenderness (R), CVA tenderness (L), muscle spasm, paraspinal tenderness, vertebral tenderness Neurological exam: Present: alert, oriented X3, CN II-XII intact Psychiatric exam: Present: normal affect, normal mood Skin exam: Present: warm, dry, intact, normal color. Absent: rash, cyanosis, diaphoretic, erythema, petechiae, pallor, mottled Course Vital Signs 02/26/21 17:57 Temperature 98.2 F Pulse Rate 82 Respiratory 18 Rate Blood Pressure 187/86 O2 Sat by Pulse 96 Oximetry Medical Decision Making - Medical Decision Making Patient has no new loss of hearing, has no fevers, there is no lymphadenopathy. He will be put on Ofloxacin ear drops for 10 days and follow up with primary care doctor in 1 week. Case discussed with Dr. Qiu. Disposition Clinical Impression: Otitis externa Disposition: HOME SELF-CARE Condition: Good Instructions (If sedation given, give patient instructions): Ear Infection (ED) Additional Instructions: Use medication as prescribed and return to the emergency room with worsening pain or fevers.. Follow-up with the primary care doctor in 1 week Prescriptions: Ofloxacin 0.3% Otic Soln [Floxin 0.3% Otic Soln] 5 drops LEFT EAR BID 10 Days #100 ml Is patient prescribed a controlled substance at d/c from ED?: No Referrals: Iván Olivia MD [Primary Care Provider] - 1-2 days Time of Disposition: 18:42
== END 2021-02-26 19:02 | disposition home or self-care (01) ==
LOC: EC 17:38
DX: H60.92 Unspecified otitis externa, left ear (principal); E11.9 Type 2 diabetes mellitus without complications; I10 Essential (primary) hypertension; Z79.84 Long term (current) use of oral hypoglycemic drugs; Z87.891 Personal history of nicotine dependence; Z88.0 Allergy status to penicillin; Z79.899 Other long term (current) drug therapy
CPT/HCPCS: 99282

== ENCOUNTER 2021-06-20 16:48 | Emergency (ER) | payer MEDICARE, BC ==
[2021-06-20 17:55] LABS: Appearance,Urine Clear (Clear); Bacteria,Urine Rare /hpf; Bilirubin,Urine Negative (Negative); Blood,Urine Negative (Negative); Color,Urine Yellow; Glucose,Urine (UA) 4+ (Negative); Leukocyte Esterase,Urine Negative (Negative); Mucus,Urine Rare /hpf; Nitrite,Urine Negative (Negative); PH, Urine 5.5 (5.0-8.0); Protein,Urine 1+ (Negative); RBC,Urine 1 /hpf (0-5); Specific Gravity,Urine 1.021 (1.001-1.035); Urobilinogen,Urine <2.0 mg/dL (<2.0); WBC,Urine 1 /hpf (0-5)
[2021-06-20 18:04] LABS: Ketones,Urine 2+ (Negative)
[2021-06-20] MEDS ORDERED: IBUPROFEN 600 MG TAB PO STA (18:18)
[2021-06-20] MEDS ORDERED: ACETAMINOPHEN TAB 325 MG TAB PO STA (18:18)
[2021-06-20] MEDS ORDERED: BAMLANIVIMAB (EUA) 700 MG, ETESEVIMAB (EUA) 1,400 MG in SODIUM CHLORIDE 0.9% 50 ML IVPB ONE (19:15)
--- NOTE | 2021-06-20 20:22 | XR ---
EXAMINATION TYPE: XR chest 2V DATE OF EXAM: 06/20/2021 COMPARISON: 01/17/2019 HISTORY: Short of breath TECHNIQUE: FINDINGS: Heart and mediastinum are normal. Lungs are clear. Diaphragm is normal. Bony thorax is inta ct. The pulmonary vascularity is normal. IMPRESSION: Normal chest. No change.
--- NOTE | 2021-06-20 20:45 | ED ---
Fever HPI - General Chief Complaint: Fever Stated Complaint: Body Aches,Low Back Pain Time Seen by Provider: 06/20/21 18:17 Source: patient, RN notes reviewed Mode of arrival: ambulatory Limitations: no limitations - History of Present Illness Initial Comments: Patient is a 75-year-old male presents to emergency department complaining of fever. Patient notes that he does not want anything to do with Covid. He notes that he is vaccinated. He denied any other issues or complaints. He denied chest pain first breath headache nausea vomiting diarrhea constipation fatigue chills. - Related Data Home Medications Medication Instructions Recorded Confirmed amLODIPine BESYLATE 10 mg PO DAILY 12/14/18 01/17/19 metFORMIN HCL 1,000 mg PO DAILY 12/14/18 01/17/19 Calcium Carbonate [Calcium] 600 mg PO DAILY 01/12/19 01/17/19 Fluticasone Nasal [place] [Flonase 1 spray EA NOSTRIL DAILY PRN 01/12/19 01/17/19 Nasal [place]] ALPRAZolam [Xanax] 0.25 mg PO HS PRN 01/17/19 01/17/19 traMADol HCL [Ultram] 50 mg PO BID PRN 01/17/19 01/17/19 Previous Rx's Medication Instructions Recorded Ofloxacin 0.3% Otic Soln [Floxin 5 drops LEFT EAR BID 10 Days #100 02/26/21 0.3% Otic Soln] ml Allergies Allergy/AdvReac Type Severity Reaction Status Date / Time Penicillins Allergy Rash/Hives Verified 06/20/21 17:27 Review of Systems ROS Statement: Those systems with pertinent positive or pertinent negative responses have been documented in the HPI. ROS Other: All systems not noted in ROS Statement are negative. Past Medical History Past Medical History: Diabetes Mellitus, Hyperlipidemia, Hypertension History of Any Multi-Drug Resistant Organisms: None Reported Additional Past Surgical History / Comment(s): ear surgery, Past Anesthesia/Blood Transfusion Reactions: No Reported Reaction Past Psychological History: No Psychological Hx Reported Smoking Status: Former smoker Past Alcohol Use History: Rare Past Drug Use History: None Reported - Past Family History Mother Additional Family Medical History / Comment(s): Aortic Aneursym Father Family Medical History: No Reported History General Exam Limitations: no limitations General appearance: alert, in no apparent distress Head exam: Present: atraumatic, normocephalic, normal inspection Eye exam: Present: normal appearance, PERRL, EOMI. Absent: scleral icterus, conjunctival injection, periorbital swelling ENT exam: Present: normal exam, mucous membranes moist Neck exam: Present: normal inspection Respiratory exam: Present: normal lung sounds bilaterally. Absent: respiratory distress, wheezes, rales, rhonchi, stridor Cardiovascular Exam: Present: regular rate, normal rhythm, normal heart sounds. Absent: systolic murmur, diastolic murmur, rubs, gallop, clicks GI/Abdominal exam: Present: soft, normal bowel sounds. Absent: distended, tenderness, guarding, rebound, rigid Extremities exam: Present: normal inspection, full ROM, normal capillary refill. Absent: tenderness, pedal edema, joint swelling, calf tenderness Neurological exam: Present: alert, oriented X3 Psychiatric exam: Present: normal affect, normal mood Skin exam: Present: warm, dry, intact, normal color. Absent: rash Course Vital Signs 06/20/21 06/20/21 17:24 20:24 Temperature 101.4 F H 98.7 F Pulse Rate 97 85 Respiratory 20 16 Rate Blood Pressure 144/75 107/73 O2 Sat by Pulse 95 96 Oximetry Medical Decision Making - Medical Decision Making 75-year-old male complaining of a fever. Covid test, chest x-ray ordered. Covid test positive Patient does meet criteria for monoclonal antibodies. Patient will undergo infusion. Case discussed with Dr. Rain - Lab Data Lab Results 06/20/21 06/20/21 Range/Units 17:27 17:37 Urine Color Yellow Urine Appearance Clear (Clear) Urine pH 5.5 (5.0-8.0) Ur Specific [place] 1.021 (1.001-1.035) Urine Protein 1+ H (Negative) Urine Glucose (UA) 4+ H (Negative) Urine Ketones 2+ H (Negative) Urine Blood Negative (Negative) Urine Nitrite Negative (Negative) Urine Bilirubin Negative (Negative) Urine Urobilinogen <2.0 (<2.0) mg/dL Ur Leukocyte Esterase Negative (Negative) Urine RBC 1 (0-5) /hpf Urine WBC 1 (0-5) /hpf Urine Bacteria Rare H (None) /hpf Urine Mucus Rare H (None) /hpf Coronavirus (PCR) Detected A (Not Detectd) Disposition Clinical Impression: COVID Disposition: HOME SELF-CARE Condition: Stable Instructions (If sedation given, give patient instructions): Fever in Adults (ED) Additional Instructions: Please return to the Emergency Department if symptoms worsen or any other c oncerns. Follow-up with primary care 1-2 days. Quarantine per CDC guidelines. Is patient prescribed a controlled substance at d/c from ED?: No Referrals: Iván Olivia MD [Primary Care Provider] - 1-2 days Time of Disposition: 20:45
[2021-06-20 21:00] VITALS: BP 130/84; PULSE 81; RESP 18; TEMP 98.6
== END 2021-06-20 20:58 | disposition home or self-care (01) ==
LOC: EC 16:48
DX: U07.1 COVID-19 (principal); E11.9 Type 2 diabetes mellitus without complications; I10 Essential (primary) hypertension; Z79.84 Long term (current) use of oral hypoglycemic drugs; Z87.891 Personal history of nicotine dependence; Z88.0 Allergy status to penicillin; Z79.899 Other long term (current) drug therapy
CPT/HCPCS: 81001; 87635; 71046; 99283; 96365; J3490

== ENCOUNTER → 2021-09-07 | Outpatient (CLI) | payer MEDICARE, BC ==
--- NOTE | 2021-09-07 15:42 | US ---
EXAMINATION TYPE: US carotid duplex BILAT DATE OF EXAM: 09/07/2021 COMPARISON: NONE CLINICAL HISTORY: I65.23 FARHANA CAROTID ARTERY STENOSIS. EXAM MEASUREMENTS: RIGHT: Peak Systolic Velocity (PSV) cm/sec ----- Right CCA: 128.0 ----- Right ICA: 81.6 ----- Right ECA: 115.0 ICA/CCA ratio: 0.64 RIGHT: End Diastole cm/sec ----- Right CCA: 19.7 ----- Right ICA: 16.2 ----- Right ECA: 8.4 LEFT: Peak Systolic Velocity (PSV) cm/sec ----- Left CCA: 147.0 ----- Left ICA: 88.2 ----- Left ECA: 130.0 ICA/CCA ratio: 0.60 LEFT: End Diastole cm/sec ----- Left CCA: 22.2 ----- Left ICA: 19.9 ----- Left ECA: 0.0 VERTEBRALS (direction of flow): Right Vertebral: Antegrade Left Vertebral: Antegrade Rhythm: Normal No significant stenosis seen. IMPRESSION: 1. No significant hemodynamic stenosis as visualized Criteria for Assigning % of Stenosis / Diameter reduction (Estimation based on the indirect measurements of the internal carotid artery velocities (ICA PSV). 1. Normal (no stenosis)=ICA PSV < 125 cm/s: ratio < 2.0: ICA EDV<40 cm/s. 2. Less than 50% stenosis=ICA PSV < 125 cm/s: ratio < 2.0: ICA EDV<40 cm/s. 3. 50 to 69% stenosis=ICA PSV of 125 to 230 cm/s: ration 2.0 ? 4.0: ICA EDV 40-100 cm/s. 4. Greater than 70% stenosis to near occlusion= ICA PSV > 230 cm/s: ratio > 4.0: ICA EDV > 100 cm/s. 5. Near occlusion= ICA PSV velocities may be low or undetectable: variable ratio and ICA EDV. 6. Total occlusion=unable to detect flow.
--- NOTE | 2021-09-08 10:10 | ECHOF ---
Referral Reason:I65.23 Occlusion/stenosis I10 HTN MEASUREMENTS -------- HEIGHT: 167.6 cm WEIGHT: 90.7 kg BP: RVIDd: 3.7 cm (< 3.3) IVSd: 1.5 cm (0.6 - 1.1) LVIDd: 2.7 cm (3.9 - 5.3) LVPWd: 1.6 cm (0.6 - 1.1) IVSs: 2.0 cm LVIDs: 1.9 cm LVPWs: 1.8 cm LAESV Index (A-L): 19.10 ml/m Ao Diam: 3.4 cm (2.0 - 3.7) AV Cusp: 1.9 cm (1.5 - 2.6) LA Diam: 4.2 cm (2.7 - 3.8) MV EXCURSION: 18.742 mm (> 18.000) MV EF SLOPE: 55 mm/s (70 - 150) EPSS: 0.5 cm MV E Franky: 0.59 m/s MV DecT: 236 ms MV A Franky: 1.12 m/s MV E/A Ratio: 0.52 RAP: 5.00 mmHg RVSP: 13.69 mmHg FINDINGS -------- Sinus rhythm. This was a technically adequate study. The left ventricular size is normal. There is moderate concentric left ventricular hypertrophy. O verall left ventricular systolic function is normal with, an EF between 55 - 60 %. The diastolic fi lling pattern is normal for the age of the patient 9.56. The right ventricle is mildly enlarged. Normal LA size by volume 22+/-6 ml/m2. The right atrial size is normal. Interatrial and interventricular septum intact. There is no evidence of aortic regurgitation. There is no evidence of aortic stenosis. No mitral regurgitation. Mild tricuspid regurgitation present. There is no evidence of pulmonary hypertension. The right v entricular systolic pressure, as measured by Doppler, is 13.69mmHg. There is no pulmonic regurgitation present. The aortic root size is normal. IVC Not well visulized. There is no pericardial effusion. CONCLUSIONS -------- 1. The left ventricular size is normal. 2. There is moderate concentric left ventricular hypertrophy. 3. Overall left ventricular systolic function is normal with, an EF between 55 - 60 %. 4. The right ventricle is mildly enlarged. 5. Mild tricuspid regurgitation present. TRASH COLLECTOR SUPERVISOR: Brigida Tierney RDCS
== END | disposition home or self-care (01) ==
LOC: RADECHMAIN 13:43
PROVIDERS: ATTEND Internal Medicine
DX: I65.23 Occlusion and stenosis of bilateral carotid arteries (principal); I10 Essential (primary) hypertension
CPT/HCPCS: 93306; 93880

== ENCOUNTER → 2023-04-14 | Outpatient (CLI) | payer MEDICARE, BC ==
[~2023-04-14] MED LIST: REGADENOSON 0.4 MG/5 ML SYRINGE IV PRN
--- NOTE | 2023-04-14 12:52 | NM ---
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 The patient received 0.4mg Lexiscan, 24.9 mCi Tc 99m Sestamibi - Stress images obtained [address] injection FINDINGS: Review of stress and rest SPECT images demonstrates no distinct perfusion abnormality. Gated analysi s shows normal wall motion with an estimated left ventricular ejection fraction of 65 %. IMPRESSION: No scintigraphic evidence for reversible ischemia.
--- NOTE | 2023-04-14 18:55 | CA ---
Lexiscan Nuclear Stress Test Report Name: Isaac Duckworth Exam Date: 04/14/2023 10:47 Exam Location: [place] Stress Ht (in): 65 Wt (lb): 204 BSA: 1.99 Ordering Phys: Iván Olivia MD Referring Phys: Ne, Technologist: Huang Ennis Age: 77 Gender: M : 1945 Procedure CPT: Indications: I25.10 ATHSCL HEART DISEASE OF [place] CORONARY ICD-10 Codes: Patient History: CHEST PAIN, HTN, DIABETIC, PRIOR CVA, ELEVATED CHOLESTEROL LEVELS, FAMILY HX OF HEART DISEASE, PRIOR SMOKER Medications: Meds past 24 hrs: Pretest Chest Pain: STRESS TEST Lexiscan Protocol Exercise Duration (min:sec): 01:[address] Depressions (mm): Angina Score: Perkins Score: Resting HR (bpm): 81 Peak HR (bpm): 95 Resting BP (mmHg): 162 / 89 Peak BP (mmHg): 162 / 89 MPHR: 143 Target HR: 122 % MPHR: 66 METS: 1.0 Total Dose: Peak Dose: Atropine: Double Product: 74921 BP Response: Stress Termination: INFUSION COMPLETE Stress Symptoms: HEADACHE Stress Summary: ECG ANALYSIS Resting ECG: Stress ECG: CONCLUSIONS Nondiagnostic electrocardiogram stress testing Dr. Karthikeyan Carpenter MD (Electronically Signed) Final Date: 14 April 2023 18:54
== END | disposition home or self-care (01) ==
LOC: RADNMMAIN 08:46
PROVIDERS: ATTEND Internal Medicine
DX: I25.10 Atherosclerotic heart disease of native coronary artery without angina pectoris (principal)
CPT/HCPCS: 93017; 78452; A9500; J2785